=== PATIENT | female | born 1980 | race Caucasian/White ===

== ENCOUNTER 2016-09-25 09:45 | Emergency (ER) | payer MEDICARE, MEDICAID ==
[~2016-09-25 09:45] MED LIST: /AMLO25TA PO; ALB2.5NEB INH; AMBI12.52 PO; CYCL5TA PO; DIVA50TAEC PO; FAMC250T3 PO; LABE300T PO; LITH450T PO; PARL5CAP PO; SYNT50TA PO; TRAZ150T PO; TRAZ50TA2 PO; VALT500T PO; VENL37TA; VICO5TAB PO; VITAD1000T PO
[2016-09-25] MEDS ORDERED: PERCOCET 5MG/325MG TAB As Ordered ONE (10:37)
[2016-09-25] MEDS ORDERED: predniSONE 20 MG TAB As Ordered ONE (10:38)
[2016-09-25] MEDS ORDERED: IBUPROFEN 800 MG TAB As Ordered ONE (10:38)
--- NOTE | 2016-09-25 11:13 | REP ---
Clinical: Trauma . Technique: Internal rotation, external rotation, and Y view right shoulder . Findings: No acute fracture or dislocation. The acromioclavicular and glenohumeral joints are intact. No periarticular calcifications or degenerative changes are appreciated. Sub acromial space is normal. Surrounding soft tissues are unremarkable. Impression: Normal right shoulder radiographs. No acute fracture or dislocation. Signed by Patrick Gold MD 09/25/2016 11:05 A
--- NOTE | 2016-09-25 11:39 | EDDOCDS ---
Physician Documentation [facility] Name: Cornelia Salazar Age: 36 yrs Sex: Female : 1980 Arrival Date: 09/25/2016 Time: 09:45 Bed TR8 Private MD: Bess Wolfe Disposition: 09/25/16 11:10 Discharged to Home/Self Care. Impression: Other sprain of right shoulder joint. - Condition is Stable. - Discharge Instructions: Shoulder Pain, [id number], Shoulder Sprain. - Prescriptions for Mobic 7.5 mg Oral Tablet - take 1 tablet by ORAL route once daily take with food; 20 tablet. Percocet 5- 325 mg Oral Tablet - take 1 tablet by ORAL route every 6 hours As needed MDD: 4 tabs; 6 tablet. - Medication Reconciliation, Local Pharmacy Hours form. - Follow up: [facility]; When: 1 - 2 days; Reason: Further diagnostic work-up, Recheck today's complaints, Continuance of care. Follow up: Emergency Department; Reason: Worsening of conditions. - Problem is new. - Symptoms have improved. Historical: - Allergies: No known drug Allergies; - Home Meds: 1. ibuprofen 200 mg Oral cap 2 caps every 4 hours (Last dose: 09/24/2016 21:00) 2. tizanidine 4 mg oral cap 2 caps as needed as needed (Last dose: 09/24/2016 21:00) 3. bromocriptine 5 mg oral cap 1 cap once daily (Last dose: 09/24/2016 21:00) 4. Depakote ER 500 mg Oral Tb24 1 tab once daily (Last dose: 09/24/2016 21:00) 5. valacyclovir 500 mg Oral tab 2 tabs once daily (Last dose: 09/24/2016 22:00) 6. fenofibrate micronized oral 1 cap once daily (Last dose: 09/24/2016) - PMHx: Bipolar disorder; chronic neck and back problems; pituitary tumor; Herpes; - PSHx: right ankle - pin and screws; Tubal ligation; - Social history: Smoking status: Patient uses tobacco products, light tobacco smoker. No barriers to communication noted, The patient speaks fluent Serbian, Speaks appropriately for age. - Family history: Not pertinent. - : The pt / caregiver states he / she is not on anticoagulants. Home medication list is obtained from the patient. - Exposure Risk Screening:: None identified. 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 4 in. (162.56 cm) (R); Pain 7/10; 11:36 BP 138 / 74; Pulse 82; Resp 16; Temp 98.0(O); Pulse Ox 97% on R/A; Pain 5/10; dwg 09:46 Body Mass Index 39.48 (104.33 kg, 162.56 cm) ct3 Procedures: 11:08 Fracture care/splinting: Splint applied to right shoulder using sling, applied by ef1 nurse. Examined by me, post splint application: neurovascular intact, 2+ distal pulses palpable, brisk capillary refill noted, Patient tolerated well. MDM: 10:31 predniSONE 60 mg PO once; administer with food or milk ordered. ef1 10:31 Ibuprofen 800 mg PO once ordered. ef1 10:31 oxyCODONE-acetaminophen 5 mg-325 mg 1 tabs PO once ordered. ef1 10:31 Ice Pack ordered. ef1 10:31 Shoulder, Complete Ordered. EDID 10:42 [facility] Payment Agreement was scanned into [employer] and attached to record. jp5 10:42 Financial registration complete. jp5 11:08 Sling ordered. ef1 Administered Medications: 10:41 Drug: Ibuprofen 800 mg [ibuprofen 800 mg tablet (1 tabs)] Route: PO; hs1 11:36 Follow up: Response: Pain is decreased dwg 10:41 Drug: oxyCODONE-acetaminophen 1 tabs [oxycodone-acetaminophen 5 mg-325 mg tablet (1 hs1 tabs)] Route: PO; 11:35 Follow up: Response: Pain is decreased dwg 10:42 Drug: predniSONE 60 mg [prednisone 20 mg tablet (3 tabs)] Route: PO; hs1 11:36 Follow up: Response: Pain is decreased dwg Signatures: Dispatcher [employer] EDMS Surjit Pedersen RN RN dwg Estefany Reed PA-C PAMercedesC ef1 Citlali Eisenberg, RN RN hs1 Boris Dominguez jp5 The chart was reviewed and I authenticate all verbal orders and agree with the evaluation and treatment provided.Attachments: 10:42 [facility] Payment Agreement jp5 MTDD
--- NOTE | 2016-09-25 11:40 | EDDOCDS ---
Nurse's Notes [facility] Name: Cornelia Salazar Age: 36 yrs Sex: Female : 1980 Arrival Date: 09/25/2016 Time: 09:45 Bed TR8 Private MD: Bess Wolfe Diagnosis: Other sprain of right shoulder joint Presentation: 09/25 09:50 Presenting complaint: Patient states: woke up with right arm pain and hand pain. hs1 Patient states hx of tennis elbow and that she has been up since 3 am with unbearable pain. Patient states recently over using arm moving boxes and cleaning as she is moving. Pt states unable to have arm hang by her side without pain. Adult Sepsis Screening: The patient does not have new or worsening altered mentation. Patient's respiratory rate is less than 22. Systolic blood pressure is greater than 100. Patient has a qSOFA score of 0- Negative Sepsis Screen. Suicide/Homicide risk assessment- the patient denies having any suicidal and/or homicidal ideations and does not present with any other emotional, behavioral or mental health complaints. Status: Patient is not a business services officer or dependent. Transition of care: patient was not received from another setting of care. 09:50 Acuity: SYBIL Level 3 hs1 09:50 Method Of Arrival: Walkin/Carried/Asstd hs1 Triage Assessment: 09:55 General: Appears in no apparent distress, Behavior is appropriate for age, cooperative. hs1 Pain: Location: right arm Pain currently is 7 out of 10 on a pain scale. At worst was 10 out of 10 on a pain scale. Aggravated by increased activity. HIV screening NA for this visit Offered previously. Musculoskeletal: Range of motion limited in right shoulder Signs and Symptoms of Compartment Syndrome:. 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 ibuprofen 200 mg Oral cap 2 caps every 4 hours (Last dose: 09/24/2016 21:00) 2. tizanidine 4 mg oral cap 2 caps as needed as needed (Last dose: 09/24/2016 21:00) 3. bromocriptine 5 mg oral cap 1 cap once daily (Last dose: 09/24/2016 21:00) 4. Depakote ER 500 mg Oral Tb24 1 tab once daily (Last dose: 09/24/2016 21:00) 5. valacyclovir 500 mg Oral tab 2 tabs once daily (Last dose: 09/24/2016 22:00) 6. fenofibrate micronized oral 1 cap once daily (Last dose: 09/24/2016) - PMHx: Bipolar disorder; chronic neck and back problems; pituitary tumor; Herpes; - PSHx: right ankle - pin and screws; Tubal ligation; - Social history: Smoking status: Patient uses tobacco products, light tobacco smoker. No barriers to communication noted, The patient speaks fluent Latvian, Speaks appropriately for age. - Family history: Not pertinent. - : The pt / caregiver states he / she is not on anticoagulants. Home medication list is obtained from the patient. - Exposure Risk Screening:: None identified. Screenin:35 Screening information is obtained from the patient. Fall risk: No risks identified. dwg Assistance ADL's: requires no assistance with activities of daily living. Abuse/DV Screen: The patient / caregiver reports he/she is: not in a situation that causes fear, pain or injury. Nutritional screening: No deficits noted. Advance Directives: Currently, there is no health care proxy. There is no active DNR order. There is no living will. There is no Power of Venetian Blind Cleaner And Repairer. Advance directive information has not previously been placed in an [facility] medical record. Further advance directive information is declined. home support is adequate. Assessment: 11:32 General: Appears in no apparent distress, Behavior is cooperative, pleasant. Pain: Pain dwg currently is 7 out of 10 on a pain scale. Neurological: Level of Consciousness is awake, alert, Oriented to person, place, time. Respiratory: Airway is patent is compromised Respiratory effort is even, unlabored, Respiratory pattern is regular, symmetrical. Musculoskeletal: Circulation, motion, and sensation intact Capillary refill < 3 seconds Range of motion limited in right shoulder and right elbow. Vital Signs: 09:46 BP 149 / 79; Pulse 88; Resp 18; Temp 97.6(O); Pulse Ox 99% on R/A; Weight 104.33 kg ct3 (R); Height 5 ft. 4 in. (162.56 cm) (R); Pain 7/10; 11:36 BP 138 / 74; Pulse 82; Resp 16; Temp 98.0(O); Pulse Ox 97% on R/A; Pain 5/10; dwg 09:46 Body Mass Index 39.48 (104.33 kg, 162.56 cm) ct3 Vitals: 09:46 Log In Time: September 25, 2016 at 09:46. ct3 ED Course: 09:46 Patient visited by Karina Hughes PCA. ct3 09:46 Bess Wolfe is Private Physician. ct3 09:46 Patient moved to Waiting ct3 09:47 Patient moved to Pre RCE ct3 09:51 Triage Initiated hs1 10:09 Patient moved to Triage 2 hs1 10:16 Estefany Reed PA-C is PHCP. ef1 10:16 Mirella Campbell MD is Attending Physician. ef1 10:16 Patient visited by Estefany Reed PA-C. ef1 10:42 Patient moved to TR2 hs1 10:42 [facility] Payment Agreement was scanned into [employer] and attached to record. jp5 11:01 Patient visited by Estefany Reed PA-C. ef1 11:10 [facility]. ef1 11:15 Patient moved to PR1 / 25 rs6 11:21 Patient visited by Cinthia Ortez PCA. rs6 11:21 Sling applied to right arm. Patient with positive distal sensation and brisk distal rs6 capillary refill after application. 11:29 Shoulder, Complete Returned. EDMS 11:32 Patient moved to TR8 ms18 11:37 No IV's were initiated during this patient's visit. No procedures done that require dwg assistance. 11:38 Patient visited by Surjit Pedersen RN. dwg 11:38 The patient / caregiver is instructed regarding the plan of care and ED course. dwg Administered Medications: 10:41 Drug: Ibuprofen 800 mg [ibuprofen 800 mg tablet (1 tabs)] Route: PO; hs1 11:36 Follow up: Response: Pain is decreased dwg 10:41 Drug: oxyCODONE-acetaminophen 1 tabs [oxycodone-acetaminophen 5 mg-325 mg tablet (1 hs1 tabs)] Route: PO; 11:35 Follow up: Response: Pain is decreased dwg 10:42 Drug: predniSONE 60 mg [prednisone 20 mg tablet (3 tabs)] Route: PO; hs1 11:36 Follow up: Response: Pain is decreased dwg Order Results: Radiology Order: Shoulder, Complete Test: Shoulder, Complete REASON FOR EXAMINATION: Trauma; Clinical: Trauma .; ; Technique: Internal rotation, external rotation, and Y view right shoulder .; ; Findings:; No acute fracture or dislocation. The acromioclavicular and glenohumeral joints; are intact. No periarticular calcifications or degenerative changes are; appreciated. Sub acromial space is normal. Surrounding soft tissues are; unremarkable.; ; Impression:; Normal right shoulder radiographs. No acute fracture or dislocation.; ; ; Signed by; Patrick Gold MD 09/25/2016 11:05 A; Outcome: 11:10 Discharge ordered by Provider. ef1 11:37 Discharge Assessment: Patient awake, alert and oriented x 3. No cognitive and/or dwg functional deficits noted. Patient verbalized understanding of disposition instructions. patient administered narcotics - no. The following High Risk Discharge criteria are identified: None. Discharged to home ambulatory. Condition: good Condition: stable. No special radiology studies were completed. Property sent home with patient. 11:38 Patient left the ED. dwg Signatures: Dispatcher [employer] EDMS Surjti Pedersen RN RN dwg Estefany Reed PABenny PA-C ef1 Citlali Eisenberg RN RN hs1 Karina Hughes, ADVERTISING DISPLAY ROTATOR ADVERTISING DISPLAY ROTATOR ct3 Holly Colin RN RN ms18 Cinthia Ortez, ADVERTISING DISPLAY ROTATOR ADVERTISING DISPLAY ROTATOR rs6 Boris Dominguez jp5 MTDD
--- NOTE | 2016-09-27 12:39 | EDDOCDS ---
Nurse's Notes [facility] Name: Cornelia Salazar Age: 36 yrs Sex: Female : 1980 Arrival Date: 09/25/2016 Time: 09:45 Bed TR8 Private MD: Bess Wolfe Diagnosis: Other sprain of right shoulder joint Presentation: 09/25 09:50 Presenting complaint: Patient states: woke up with right arm pain and hand pain. hs1 Patient states hx of tennis elbow and that she has been up since 3 am with unbearable pain. Patient states recently over using arm moving boxes and cleaning as she is moving. Pt states unable to have arm hang by her side without pain. Adult Sepsis Screening: The patient does not have new or worsening altered mentation. Patient's respiratory rate is less than 22. Systolic blood pressure is greater than 100. Patient has a qSOFA score of 0- Negative Sepsis Screen. Suicide/Homicide risk assessment- the patient denies having any suicidal and/or homicidal ideations and does not present with any other emotional, behavioral or mental health complaints. Status: Patient is not a parts and service manager or dependent. Transition of care: patient was not received from another setting of care. 09:50 Acuity: SYBIL Level 3 hs1 09:50 Method Of Arrival: Walkin/Carried/Asstd hs1 Triage Assessment: 09:55 General: Appears in no apparent distress, Behavior is appropriate for age, cooperative. hs1 Pain: Location: right arm Pain currently is 7 out of 10 on a pain scale. At worst was 10 out of 10 on a pain scale. Aggravated by increased activity. HIV screening NA for this visit Offered previously. Musculoskeletal: Range of motion limited in right shoulder Signs and Symptoms of Compartment Syndrome:. 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 ibuprofen 200 mg Oral cap 2 caps every 4 hours (Last dose: 09/24/2016 21:00) 2. tizanidine 4 mg oral cap 2 caps as needed as needed (Last dose: 09/24/2016 21:00) 3. bromocriptine 5 mg oral cap 1 cap once daily (Last dose: 09/24/2016 21:00) 4. Depakote ER 500 mg Oral Tb24 1 tab once daily (Last dose: 09/24/2016 21:00) 5. valacyclovir 500 mg Oral tab 2 tabs once daily (Last dose: 09/24/2016 22:00) 6. fenofibrate micronized oral 1 cap once daily (Last dose: 09/24/2016) - PMHx: Bipolar disorder; chronic neck and back problems; pituitary tumor; Herpes; - PSHx: right ankle - pin and screws; Tubal ligation; - Social history: Smoking status: Patient uses tobacco products, light tobacco smoker. No barriers to communication noted, The patient speaks fluent Cymraes, Speaks appropriately for age. - Family history: Not pertinent. - : The pt / caregiver states he / she is not on anticoagulants. Home medication list is obtained from the patient. - Exposure Risk Screening:: None identified. Screenin:35 Screening information is obtained from the patient. Fall risk: No risks identified. dwg Assistance ADL's: requires no assistance with activities of daily living. Abuse/DV Screen: The patient / caregiver reports he/she is: not in a situation that causes fear, pain or injury. Nutritional screening: No deficits noted. Advance Directives: Currently, there is no health care proxy. There is no active DNR order. There is no living will. There is no Power of Grocery Team Member. Advance directive information has not previously been placed in an [facility] medical record. Further advance directive information is declined. home support is adequate. Assessment: 11:32 General: Appears in no apparent distress, Behavior is cooperative, pleasant. Pain: Pain dwg currently is 7 out of 10 on a pain scale. Neurological: Level of Consciousness is awake, alert, Oriented to person, place, time. Respiratory: Airway is patent is compromised Respiratory effort is even, unlabored, Respiratory pattern is regular, symmetrical. Musculoskeletal: Circulation, motion, and sensation intact Capillary refill < 3 seconds Range of motion limited in right shoulder and right elbow. Vital Signs: 09:46 BP 149 / 79; Pulse 88; Resp 18; Temp 97.6(O); Pulse Ox 99% on R/A; Weight 104.33 kg ct3 (R); Height 5 ft. 4 in. (162.56 cm) (R); Pain 7/10; 11:36 BP 138 / 74; Pulse 82; Resp 16; Temp 98.0(O); Pulse Ox 97% on R/A; Pain 5/10; dwg 09:46 Body Mass Index 39.48 (104.33 kg, 162.56 cm) ct3 Vitals: 09:46 Log In Time: September 25, 2016 at 09:46. ct3 ED Course: 09:46 Patient visited by Karina Hughes PCA. ct3 09:46 Bess Wolfe is Private Physician. ct3 09:46 Patient moved to Waiting ct3 09:47 Patient moved to Pre RCE ct3 09:51 Triage Initiated hs1 10:09 Patient moved to Triage 2 hs1 10:16 Estefany Reed PA-C is PHCP. ef1 10:16 Mirella Campbell MD is Attending Physician. ef1 10:16 Patient visited by Estefany Reed PA-C. ef1 10:42 Patient moved to TR2 hs1 10:42 [facility] Payment Agreement was scanned into [employer] and attached to record. jp5 11:01 Patient visited by Estefany Reed PA-C. ef1 11:10 [facility]. ef1 11:15 Patient moved to PR1 / 25 rs6 11:21 Patient visited by Cinthia Ortez PCA. rs6 11:21 Sling applied to right arm. Patient with positive distal sensation and brisk distal rs6 capillary refill after application. 11:29 Shoulder, Complete Returned. EDMS 11:32 Patient moved to TR8 ms18 11:37 No IV's were initiated during this patient's visit. No procedures done that require dwg assistance. 11:38 Patient visited by Surjit Pedersen RN. dwg 11:38 The patient / caregiver is instructed regarding the plan of care and ED course. dwg 14:32 T-Sheet-- Draft Copy was scanned into [employer] and attached to record. gb 14:32 Radiology Report was scanned into [employer] and attached to record. gb Administered Medications: 10:41 Drug: Ibuprofen 800 mg [ibuprofen 800 mg tablet (1 tabs)] Route: PO; hs1 11:36 Follow up: Response: Pain is decreased dwg 10:41 Drug: oxyCODONE-acetaminophen 1 tabs [oxycodone-acetaminophen 5 mg-325 mg tablet (1 hs1 tabs)] Route: PO; 11:35 Follow up: Response: Pain is decreased dwg 10:42 Drug: predniSONE 60 mg [prednisone 20 mg tablet (3 tabs)] Route: PO; hs1 11:36 Follow up: Response: Pain is decreased dwg Order Results: Radiology Order: Shoulder, Complete Test: Shoulder, Complete REASON FOR EXAMINATION: Trauma; Clinical: Trauma .; ; Technique: Internal rotation, external rotation, and Y view right shoulder .; ; Findings:; No acute fracture or dislocation. The acromioclavicular and glenohumeral joints; are intact. No periarticular calcifications or degenerative changes are; appreciated. Sub acromial space is normal. Surrounding soft tissues are; unremarkable.; ; Impression:; Normal right shoulder radiographs. No acute fracture or dislocation.; ; ; Signed by; Patrick Gold MD 09/25/2016 11:05 A; Outcome: 11:10 Discharge ordered by Provider. ef1 11:37 Discharge Assessment: Patient awake, alert and oriented x 3. No cognitive and/or dwg functional deficits noted. Patient verbalized understanding of disposition instructions. patient administered narcotics - no. The following High Risk Discharge criteria are identified: None. Discharged to home ambulatory. Condition: good Condition: stable. No special radiology studies were completed. Property sent home with patient. 11:38 Patient left the ED. g Signatures: Dispatcher [employer] Surjit Peng, RN MIRIAN dwg Janae Kern, Romario Reg Estefany Gorman, PA-C PA-C ef1 Citlali Eisenberg RN RN hs1 Karina Hughes, PELLET MACHINE OPERATOR PELLET MACHINE OPERATOR ct3 Holly Colin RN RN ms18 Cinthia Ortez, PELLET MACHINE OPERATOR PELLET MACHINE OPERATOR rs6 Boris Dominguez jp5 Chart Complete MTDD
--- NOTE | 2016-09-27 12:39 | EDDOCDS ---
Physician Documentation [facility] Name: Cornelia Salazar Age: 36 yrs Sex: Female : 1980 Arrival Date: 09/25/2016 Time: 09:45 Bed TR8 Private MD: Bess Wolfe Disposition: 09/25/16 11:10 Discharged to Home/Self Care. Impression: Other sprain of right shoulder joint. - Condition is Stable. - Discharge Instructions: Shoulder Pain, [id number], Shoulder Sprain. - Prescriptions for Mobic 7.5 mg Oral Tablet - take 1 tablet by ORAL route once daily take with food; 20 tablet. Percocet 5- 325 mg Oral Tablet - take 1 tablet by ORAL route every 6 hours As needed MDD: 4 tabs; 6 tablet. - Medication Reconciliation, Local Pharmacy Hours form. - Follow up: [facility]; When: 1 - 2 days; Reason: Further diagnostic work-up, Recheck today's complaints, Continuance of care. Follow up: Emergency Department; Reason: Worsening of conditions. - Problem is new. - Symptoms have improved. Historical: - Allergies: No known drug Allergies; - Home Meds: 1. ibuprofen 200 mg Oral cap 2 caps every 4 hours (Last dose: 09/24/2016 21:00) 2. tizanidine 4 mg oral cap 2 caps as needed as needed (Last dose: 09/24/2016 21:00) 3. bromocriptine 5 mg oral cap 1 cap once daily (Last dose: 09/24/2016 21:00) 4. Depakote ER 500 mg Oral Tb24 1 tab once daily (Last dose: 09/24/2016 21:00) 5. valacyclovir 500 mg Oral tab 2 tabs once daily (Last dose: 09/24/2016 22:00) 6. fenofibrate micronized oral 1 cap once daily (Last dose: 09/24/2016) - PMHx: Bipolar disorder; chronic neck and back problems; pituitary tumor; Herpes; - PSHx: right ankle - pin and screws; Tubal ligation; - Social history: Smoking status: Patient uses tobacco products, light tobacco smoker. No barriers to communication noted, The patient speaks fluent Danish, Speaks appropriately for age. - Family history: Not pertinent. - : The pt / caregiver states he / she is not on anticoagulants. Home medication list is obtained from the patient. - Exposure Risk Screening:: None identified. 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 4 in. (162.56 cm) (R); Pain 7/10; 11:36 BP 138 / 74; Pulse 82; Resp 16; Temp 98.0(O); Pulse Ox 97% on R/A; Pain 5/10; dwg 09:46 Body Mass Index 39.48 (104.33 kg, 162.56 cm) ct3 Procedures: 11:08 Fracture care/splinting: Splint applied to right shoulder using sling, applied by ef1 nurse. Examined by me, post splint application: neurovascular intact, 2+ distal pulses palpable, brisk capillary refill noted, Patient tolerated well. MDM: 10:31 predniSONE 60 mg PO once; administer with food or milk ordered. ef1 10:31 Ibuprofen 800 mg PO once ordered. ef1 10:31 oxyCODONE-acetaminophen 5 mg-325 mg 1 tabs PO once ordered. ef1 10:31 Ice Pack ordered. ef1 10:31 Shoulder, Complete Ordered. EDMS 10:42 [facility] Payment Agreement was scanned into [employer] and attached to record. jp5 10:42 Financial registration complete. jp5 11:08 Sling ordered. ef1 14:32 T-Sheet-- Draft Copy was scanned into [employer] and attached to record. gb 14:32 Radiology Report was scanned into [employer] and attached to record. gb Administered Medications: 10:41 Drug: Ibuprofen 800 mg [ibuprofen 800 mg tablet (1 tabs)] Route: PO; hs1 11:36 Follow up: Response: Pain is decreased dwg 10:41 Drug: oxyCODONE-acetaminophen 1 tabs [oxycodone-acetaminophen 5 mg-325 mg tablet (1 hs1 tabs)] Route: PO; 11:35 Follow up: Response: Pain is decreased dwg 10:42 Drug: predniSONE 60 mg [prednisone 20 mg tablet (3 tabs)] Route: PO; hs1 11:36 Follow up: Response: Pain is decreased dwg Signatures: Dispatcher [employer] Surjit Peng, RN RN [facility] Janae Kern, Romario Reg Estefany Reed PA-C PA-C ef1 Citlali Eisenberg RN RN hs1 Boris Dominguez jp5 The chart was reviewed and I authenticate all verbal orders and agree with the evaluation and treatment provided.Attachments: 10:42 [facility] Payment Agreement jp5 14:32 T-Sheet-- Draft Copy gb Chart Complete MTDD
--- NOTE | 2016-09-27 12:39 | EDDOCDS ---
Physician Documentation [facility] Name: Cornelia Salazar Age: 36 yrs Sex: Female : 1980 Arrival Date: 09/25/2016 Time: 09:45 Bed TR8 Private MD: Bess Wolfe Disposition: 09/25/16 11:10 Discharged to Home/Self Care. Impression: Other sprain of right shoulder joint. - Condition is Stable. - Discharge Instructions: Shoulder Pain, [id number], Shoulder Sprain. - Prescriptions for Mobic 7.5 mg Oral Tablet - take 1 tablet by ORAL route once daily take with food; 20 tablet. Percocet 5- 325 mg Oral Tablet - take 1 tablet by ORAL route every 6 hours As needed MDD: 4 tabs; 6 tablet. - Medication Reconciliation, Local Pharmacy Hours form. - Follow up: [facility]; When: 1 - 2 days; Reason: Further diagnostic work-up, Recheck today's complaints, Continuance of care. Follow up: Emergency Department; Reason: Worsening of conditions. - Problem is new. - Symptoms have improved. Historical: - Allergies: No known drug Allergies; - Home Meds: 1. ibuprofen 200 mg Oral cap 2 caps every 4 hours (Last dose: 09/24/2016 21:00) 2. tizanidine 4 mg oral cap 2 caps as needed as needed (Last dose: 09/24/2016 21:00) 3. bromocriptine 5 mg oral cap 1 cap once daily (Last dose: 09/24/2016 21:00) 4. Depakote ER 500 mg Oral Tb24 1 tab once daily (Last dose: 09/24/2016 21:00) 5. valacyclovir 500 mg Oral tab 2 tabs once daily (Last dose: 09/24/2016 22:00) 6. fenofibrate micronized oral 1 cap once daily (Last dose: 09/24/2016) - PMHx: Bipolar disorder; chronic neck and back problems; pituitary tumor; Herpes; - PSHx: right ankle - pin and screws; Tubal ligation; - Social history: Smoking status: Patient uses tobacco products, light tobacco smoker. No barriers to communication noted, The patient speaks fluent Luxembourgish, Speaks appropriately for age. - Family history: Not pertinent. - : The pt / caregiver states he / she is not on anticoagulants. Home medication list is obtained from the patient. - Exposure Risk Screening:: None identified. 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 4 in. (162.56 cm) (R); Pain 7/10; 11:36 BP 138 / 74; Pulse 82; Resp 16; Temp 98.0(O); Pulse Ox 97% on R/A; Pain 5/10; dwg 09:46 Body Mass Index 39.48 (104.33 kg, 162.56 cm) ct3 Procedures: 11:08 Fracture care/splinting: Splint applied to right shoulder using sling, applied by ef1 nurse. Examined by me, post splint application: neurovascular intact, 2+ distal pulses palpable, brisk capillary refill noted, Patient tolerated well. MDM: 10:31 predniSONE 60 mg PO once; administer with food or milk ordered. ef1 10:31 Ibuprofen 800 mg PO once ordered. ef1 10:31 oxyCODONE-acetaminophen 5 mg-325 mg 1 tabs PO once ordered. ef1 10:31 Ice Pack ordered. ef1 10:31 Shoulder, Complete Ordered. EDMS 10:42 [facility] Payment Agreement was scanned into [employer] and attached to record. jp5 10:42 Financial registration complete. jp5 11:08 Sling ordered. ef1 14:32 T-Sheet-- Draft Copy was scanned into [employer] and attached to record. gb 14:32 Radiology Report was scanned into [employer] and attached to record. gb Administered Medications: 10:41 Drug: Ibuprofen 800 mg [ibuprofen 800 mg tablet (1 tabs)] Route: PO; hs1 11:36 Follow up: Response: Pain is decreased dwg 10:41 Drug: oxyCODONE-acetaminophen 1 tabs [oxycodone-acetaminophen 5 mg-325 mg tablet (1 hs1 tabs)] Route: PO; 11:35 Follow up: Response: Pain is decreased dwg 10:42 Drug: predniSONE 60 mg [prednisone 20 mg tablet (3 tabs)] Route: PO; hs1 11:36 Follow up: Response: Pain is decreased dwg Signatures: Dispatcher [employer] Surjit Peng, RN RN [facility] Janae Kern, Romario Reg Estefany Reed PA-C PA-C ef1 Citlali Eisenberg RN RN hs1 Boris Dominguez jp5 The chart was reviewed and I authenticate all verbal orders and agree with the evaluation and treatment provided.Attachments: 10:42 [facility] Payment Agreement jp5 14:32 T-Sheet-- Draft Copy gb Chart Complete MTDD
== END 2016-09-25 11:38 | disposition home or self-care (01) ==
LOC: M ED 09:45
DX: S43.401A Unspecified sprain of right shoulder joint, initial encounter (principal); X58.XXXA Exposure to other specified factors, initial encounter; Y92.89 Other specified places as the place of occurrence of the external cause; Y93.89 Activity, other specified; Y99.8 Other external cause status; F31.9 Bipolar disorder, unspecified; B00.9 Herpesviral infection, unspecified; M54.9 Dorsalgia, unspecified; F17.210 Nicotine dependence, cigarettes, uncomplicated; Z79.899 Other long term (current) drug therapy

== ENCOUNTER → 2016-10-16 | Outpatient (RCR) | payer MEDICARE, MEDICAID | LOC: M PT 10-04 13:06 | PROVIDERS: ATTEND Orthopaedic Surgery | DX: Z51.89 Encounter for other specified aftercare (principal); M75.41 Impingement syndrome of right shoulder | CPT/HCPCS: 97110; 97140; 97162; G0283; G8984; G8985 ==

== ENCOUNTER → 2016-11-13 | Outpatient (RCR) | payer MEDICARE, MEDICAID | END | disposition home or self-care (01) | LOC: M PT 10-18 13:07 | PROVIDERS: ATTEND Orthopaedic Surgery | DX: Z51.89 Encounter for other specified aftercare (principal); M75.41 Impingement syndrome of right shoulder; M25.511 Pain in right shoulder | CPT/HCPCS: 97110; 97140; G0283; G8984; G8985 ==

== ENCOUNTER → 2016-11-14 | Outpatient (CLI) | payer MEDICARE, MEDICAID | LOC: M LAB 11-13 14:49 | PROVIDERS: ATTEND Physician Assistant Medical | DX: N64.3 Galactorrhea not associated with childbirth (principal) ==

== ENCOUNTER 2016-12-13 13:16 | Outpatient (RCR) | payer MEDICARE, MEDICAID | END 2016-12-14 | LOC: M PT 13:16 | PROVIDERS: ATTEND Orthopaedic Surgery | DX: Z51.89 Encounter for other specified aftercare (principal); M75.41 Impingement syndrome of right shoulder; M25.511 Pain in right shoulder ==

== ENCOUNTER 2016-12-19 11:15 | Outpatient (RCR) | payer MEDICARE, MEDICAID ==
[2017-01-04] MEDS ORDERED: TIZA4CAP3 PO
[2017-01-04] MEDS ORDERED: REGL10TA6 PO (02:40)
== END 2017-01-13 ==
LOC: M PT 11:15
PROVIDERS: ATTEND Orthopaedic Surgery
DX: Z51.89 Encounter for other specified aftercare (principal); M75.41 Impingement syndrome of right shoulder; M25.511 Pain in right shoulder
CPT/HCPCS: 97033; 97110; G8984; G8985; G8986

== ENCOUNTER 2017-01-03 23:50 | Emergency (ER) | payer MEDICARE, MEDICAID ==
[~2017-01-03] VITALS: Ht 162.6 cm; Wt 101.6 kg
[2017-01-04] MEDS ORDERED: TIZA4CAP3 PO
[2017-01-04] MEDS ORDERED: NS 1,000 ML IV ONE (00:15)
[2017-01-04] MEDS ORDERED: METOCLOPRAMIDE INJ 10MG/2ML VIAL (J2765) IV ONE (00:45)
[2017-01-04] MEDS ORDERED: MORPHINE 4 MG/ML 1ML SYRINGE IV ONE (00:45)
[2017-01-04 00:56] LABS: BASO % 0.5 % (0.0-1.0); EOS % 0.8 % (0.0-3.0); LARGE UNSTAINED CELL # 0.1 K/mm3 (0.0-0.4); LARGE UNSTAINED CELL % 1.8 % (0.0-4.0); LYMPH # 1.8 K/mm3 (1.5-4.5); LYMPH % 25.2 % (24.0-44.0); MEAN CORPUSCULAR HEMOGLOBIN 33.7 pg (27.0-33.0); MEAN CORPUSCULAR HGB CONC 34.7 g/dl (32.0-36.5); MEAN CORPUSCULAR VOLUME 97.2 fl (80.0-96.0); MONO # 0.4 K/mm3 (0.0-0.8); MONO % 6.8 % (0.0-5.0); NEUTROPHILS # 4.2 K/mm3 (1.8-7.7); NEUTROPHILS % 64.9 % (36.0-66.0); PLATELET COUNT, AUTOMATED 212 k/mm3 (150-450); RED CELL DISTRIBUTION WIDTH 12.4 % (11.5-14.5); WHITE BLOOD COUNT 6.5 K/mm3 (4.0-10.0)
[2017-01-04 01:09] LABS: CONTROL LINE HCG INT CTR LINE PRESENT
[2017-01-04 01:17] LABS: ALBUMIN 4.1 GM/DL (3.2-5.2); ALBUMIN/GLOBULIN RATIO 1.11 (1.00-1.93); ALKALINE PHOSPHATASE 45 U/L (45-117); ALT/SGPT 18 U/L (12-78); AMYLASE 37 U/L (25-115); ANION GAP 10 MEQ/L (8-16); AST/SGOT 13 U/L (15-37); BILIRUBIN,DIRECT 0.1 MG/DL (0.0-0.2); BILIRUBIN,TOTAL 0.5 MG/DL (0.2-1.0); BLOOD UREA NITROGEN 9 MG/DL (7-18); CALCIUM LEVEL 8.9 MG/DL (8.5-10.1); CARBON DIOXIDE LEVEL 24 MEQ/L (21-32); CHLORIDE LEVEL 104 MEQ/L (98-107); CREATININE FOR GFR 0.86 MG/DL (0.55-1.02); GLOMERULAR FILTRATION RATE > 60.0 (>60); GLUCOSE, FASTING 90 MG/DL (70-105); POTASSIUM SERUM 3.4 MEQ/L (3.5-5.1); SODIUM LEVEL 138 MEQ/L (136-145); TOTAL PROTEIN 7.8 GM/DL (6.4-8.2)
[2017-01-04] MEDS ORDERED: ISOVUE-370 76% 100ML VIAL (Q9967) As Ordered ONE (01:39)
[2017-01-04] MEDS ORDERED: MORPHINE 2 MG/ML 1ML SYRINGE IV ONE (01:45)
[2017-01-04] MEDS ORDERED: IPRATROPIUM 0.5MG/ALBUTEROL 2.5MG INH SOL UD 3ML (DUONEB)(J7620) NEB ONE (02:00)
--- NOTE | 2017-01-04 02:30 | REPUSA ---
CLINICAL HISTORY: Abdominal pain. TECHNIQUE: Multiple axial, sagittal and coronal CT images were obtained through the abdomen and pelvi s after administration of oral and intravenous contrast material. Images were obtained before and aft er IV contrast administration. COMMENTS: The liver is mildly enlarged with decreased attenuation without mass or defect. There is no intra or extrahepatic biliary ductal dilatation. The spleen is normal. The gallbladder is within normal limits . The pancreas is of normal contour and attenuation characteristics. There is no evidence of adrenal mass. Both kidneys demonstrate prompt and equal nephrograms. The kidneys are normal in size, shape and conf iguration. There is no evidence of renal or ureteral mass. No renal or ureteral calculi are identifie d. There is no hydroureter or hydronephrosis. No evidence for appendicitis. There is mild thickening of the proximal small bowels. Fluid-filled re maining small bowels. No evidence for small or large bowel obstruction. There is no evidence of abdom inal ascites or lymphadenopathy. There is no evidence of intrinsic or extrinsic bladder mass. There is no pelvic ascites or lymphadeno artem. Mild diffuse thickening of the wall of the bladder. Images of the lung bases show no evidence of pleural or parenchymal mass. There are no pleural effusi ons. The bony structures are free of lytic or blastic lesions. Multilevel degenerative changes are seen in volving the thoracolumbar spine. Mild bilateral changes of sacroiliitis. Anterior midline supraumbilical hernia containing nonincarcerated fat. IMPRESSION: Enteritis. Mild bilateral changes of sacroiliitis. Mild hepatomegaly with fatty liver infiltration. Mild cystitis. Thank you for your kind referral of this patient.
[2017-01-04] MEDS ORDERED: REGL10TA6 PO (02:40)
[2017-01-04 03:01] VITALS: BP 158/82
== END 2017-01-04 03:02 | disposition home or self-care (01) ==
LOC: M ED 01-04 00:34
DX: K52.9 Noninfective gastroenteritis and colitis, unspecified (principal); F31.9 Bipolar disorder, unspecified; G43.909 Migraine, unspecified, not intractable, without status migrainosus; F17.210 Nicotine dependence, cigarettes, uncomplicated; Z88.8 Allergy status to other drugs, medicaments and biological substances; Z79.899 Other long term (current) drug therapy
CPT/HCPCS: 36415; 74177; 80048; 80076; 81001; 82150; 83690; 84703; 85025; 87086; 96374; 96375; 96376; 99283; J2765; Q9967

== ENCOUNTER → 2017-04-22 | Outpatient (CLI) | payer MEDICARE, MEDICAID ==
[~2017-04-22] MED LIST changes: +REGL10TA6 PO; +TIZA4CAP3 PO
[2017-04-22 13:13] LABS: EOS # 0.2 K/mm3 (0.0-0.50); EOS % 3.3 % (0.0-3.0); LYMPH # 1.7 K/mm3 (1.5-4.5); LYMPH % 27.5 % (24.0-44.0); MEAN CORPUSCULAR HGB CONC 34.3 g/dl (32.0-36.5); MEAN CORPUSCULAR VOLUME 99.1 fl (80.0-96.0); MONO # 0.3 K/mm3 (0.0-0.8); MONO % 5.8 % (0.0-5.0); NEUTROPHILS # 3.4 K/mm3 (1.8-7.7); NEUTROPHILS % 60.4 % (36.0-66.0); RED CELL DISTRIBUTION WIDTH 13.2 % (11.5-14.5); WHITE BLOOD COUNT 5.6 K/mm3 (4.0-10.0)
[2017-04-22 14:20] LABS: ALBUMIN 3.6 GM/DL (3.2-5.2); ALBUMIN/GLOBULIN RATIO 1.09 (1.00-1.93); ALKALINE PHOSPHATASE 35 U/L (45-117); ALT/SGPT 13 U/L (12-78); ANION GAP 10 MEQ/L (8-16); AST/SGOT 8 U/L (15-37); BILIRUBIN,TOTAL 0.6 MG/DL (0.2-1.0); BLOOD UREA NITROGEN 9 MG/DL (7-18); CALCIUM LEVEL 8.6 MG/DL (8.5-10.1); CARBON DIOXIDE LEVEL 24 MEQ/L (21-32); CHLORIDE LEVEL 108 MEQ/L (98-107); CHOLESTEROL LEVEL 155 MG/DL (<200); CREATININE FOR GFR 0.82 MG/DL (0.55-1.02); FREE T4 0.97 NG/DL (0.76-1.46); GLOMERULAR FILTRATION RATE > 60.0 (>60); GLUCOSE, FASTING 87 MG/DL (70-105); POTASSIUM SERUM 4.7 MEQ/L (3.5-5.1); SODIUM LEVEL 142 MEQ/L (136-145); TOTAL PROTEIN 6.9 GM/DL (6.4-8.2); TRIGLYCERIDES LEVEL 182 MG/DL (<150)
== END ==
LOC: M LAB 11:44
PROVIDERS: ATTEND Nurse Practitioner Adult Health
DX: E04.0 Nontoxic diffuse goiter (principal); Z79.899 Other long term (current) drug therapy; N64.3 Galactorrhea not associated with childbirth; F31.81 Bipolar II disorder

== ENCOUNTER → 2017-05-14 | Outpatient (CLI) | payer MEDICARE, MEDICAID ==
[2017-05-14 14:11] LABS: PROLACTIN 16.7 NG/ML
== END ==
LOC: M LAB 12:30
PROVIDERS: ATTEND Physician Assistant Medical
DX: E04.0 Nontoxic diffuse goiter (principal); E64.3 Sequelae of rickets

== ENCOUNTER → 2017-06-14 | Outpatient (CLI) | payer MEDICARE, OTHER, MEDICAID ==
--- NOTE | 2017-06-14 17:26 | REP ---
MR BRAIN WITHOUT AND WITH CONTRAST: HISTORY: Galactorrhea. CONTRAST: ProHance 8 mL. Several punctate areas of increased signal intensity on T2 weighted images are present in subcortical white matter of the frontal lobes. There is no intraparenchymal hemorrhage, infarct or midline shift. An 11 mm pineal cyst is present. The ventricular system is normal in appearance. There is no extracerebral collection. The sella turcica is partially empty. A 3 mm focus of decreased signal intensity on T1 weighted images is present in the left side of pituitary gland. There is minimal heterogenous enhancement with contrast. The pituitary gland measures 5 mm in height. The infundibulum is midline . The cavernous sinuses, optic chiasm and hypothalamus are normal in appearance. The sinuses are clear. IMPRESSION: 1. There are several punctate areas of increased signal intensity in the subcortical white matter of the frontal lobes. This is a nonspecific finding. 2. There is a 3 mm focus of decreased signal intensity in the left side of the pituitary gland with minimal heterogenous enhancement with contrast. This is suspicious for a small microadenoma. Signed by Wilfred Lynne MD 06/14/2017 05:33 P
== END ==
LOC: M PLARAD 14:29
PROVIDERS: ATTEND Internal Medicine Endocrinology, Diabetes & Metabolism
DX: N64.3 Galactorrhea not associated with childbirth (principal)
CPT/HCPCS: 70553; A9576

== ENCOUNTER 2017-09-02 06:01 | Emergency (ER) | payer MEDICAID, MEDICARE, OTHER ==
[2017-09-02 06:43] VITALS: BP 170/85
[2017-09-02] MEDS ORDERED: KETOROLAC 60 MG/2 ML VIAL (J1885) IM ONE (07:15)
[2017-09-02 08:05] LABS: BASO # 0.1 10^3/uL (0.0-0.2); EOS # 0.1 10^3/uL (0.0-0.50); EOS % 2.1 % (0.0-3.0); IMMATURE GRANULOCYTE % 0.3 % (0-0); LYMPH # 1.4 10^3/uL (1.5-4.5); LYMPH % 22.2 % (24.0-44.0); MEAN CORPUSCULAR HEMOGLOBIN 35.7 pg (27.0-33.0); MEAN CORPUSCULAR HGB CONC 35.9 g/dl (32.0-36.5); MEAN CORPUSCULAR VOLUME 99.3 fl (80.0-96.0); MONO # 0.8 10^3/uL (0.0-0.8); MONO % 12.6 % (0.0-5.0); NEUTROPHILS # 3.8 10^3/uL (1.8-7.7); NEUTROPHILS % 61.8 % (36.0-66.0); PLATELET COUNT, AUTOMATED 218 10^3/uL (150-450); RED CELL DISTRIBUTION WIDTH 12.5 % (11.5-14.5); WHITE BLOOD COUNT 6.1 10^3/uL (4.0-10.0)
[2017-09-02 08:15] LABS: ANION GAP 11 MEQ/L (8-16); BLOOD UREA NITROGEN 7 MG/DL (7-18); CALCIUM LEVEL 8.4 MG/DL (8.5-10.1); CARBON DIOXIDE LEVEL 22 MEQ/L (21-32); CHLORIDE LEVEL 105 MEQ/L (98-107); CREATININE FOR GFR 0.72 MG/DL (0.55-1.02); GLOMERULAR FILTRATION RATE > 60.0 (>60); GLUCOSE, FASTING 107 MG/DL (70-105); POTASSIUM SERUM 3.6 MEQ/L (3.5-5.1); SODIUM LEVEL 138 MEQ/L (136-145)
[2017-09-02 08:16] LABS: METHADONE URINE NEGATIVE (NEGATIVE)
--- NOTE | 2017-09-02 08:36 | REP ---
Pelvis, left hip: Three views. History: Trauma. Findings: AP view of the pelvis and AP and frog-leg views of the left hip were obtained and compared with the October 03, 2012 prior study. The bony pelvic ring is intact. No sacral or pelvic fracture is seen. Proximal femurs are intact. No hip fracture is seen. Periarticular soft tissues are unremarkable. Impression: No traumatic abnormality is seen. Signed by Fab Navarro MD 09/02/2017 03:49 P
--- NOTE | 2017-09-02 08:46 | REP ---
Right knee series: Four views. History: Trauma. Findings: Four views of the right knee are obtained. The patient was unable to position herself for the sunrise view. There is mild osteoarthritic spurring at the medial and lateral compartments. There is also mild patellar spurring. No fracture or subluxation is seen. Impression: Mild three compartment osteoarthritic spurring. No traumatic abnormality. Signed by Fab Navarro MD 09/02/2017 03:49 P
[2017-09-03] MEDS ORDERED: DICY1CAP8 PO (19:16)
[2017-09-03] MEDS ORDERED: DIVA500T9 PO (19:16)
[2017-09-03] MEDS ORDERED: VALT1TAB PO (19:16)
[2017-09-03] MEDS ORDERED: BROM1TAB PO (19:16)
[2017-09-03] MEDS ORDERED: DIVA125T PO (19:16)
[2017-09-03] MEDS ORDERED: FENO160T10 PO (19:16)
== END 2017-09-02 08:47 | disposition left against medical advice (07) ==
LOC: M ED 06:01
DX: M25.561 Pain in right knee (principal); G89.29 Other chronic pain; Z72.0 Tobacco use; F12.10 Cannabis abuse, uncomplicated

== ENCOUNTER 2017-09-03 15:27 | Inpatient (IN) | payer MEDICARE, MEDICAID ==
[~2017-09-03] VITALS: Ht 162.6 cm; Wt 75.5 kg
[2017-09-03 16:48] LABS: MEAN CORPUSCULAR HEMOGLOBIN 35.4 pg (27.0-33.0); MEAN CORPUSCULAR VOLUME 98.3 fl (80.0-96.0); PLATELET COUNT, AUTOMATED 214 10^3/uL (150-450); RED CELL DISTRIBUTION WIDTH 12.7 % (11.5-14.5)
[2017-09-03] MEDS ORDERED: cloNIDine 0.1 MG TAB PO ONE (17:00)
[2017-09-03 17:03] LABS: METHADONE URINE NEGATIVE (NEGATIVE)
[2017-09-03 17:05] LABS: CONTROL LINE HCG INT CTR LINE PRESENT
[2017-09-03 17:15] LABS: ALBUMIN 3.6 GM/DL (3.2-5.2); ALKALINE PHOSPHATASE 39 U/L (45-117); ALT/SGPT 33 U/L (12-78); ANION GAP 10 MEQ/L (8-16); AST/SGOT 25 U/L (7-37); BILIRUBIN,DIRECT 0.2 MG/DL (0.0-0.2); BILIRUBIN,TOTAL 0.5 MG/DL (0.2-1.0); BLOOD UREA NITROGEN 9 MG/DL (7-18); CALCIUM LEVEL 8.6 MG/DL (8.5-10.1); CARBON DIOXIDE LEVEL 24 MEQ/L (21-32); CHLORIDE LEVEL 106 MEQ/L (98-107); CREATININE FOR GFR 0.71 MG/DL (0.55-1.02); GLOMERULAR FILTRATION RATE > 60.0 (>60); GLUCOSE, FASTING 128 MG/DL (70-105); POTASSIUM SERUM 3.5 MEQ/L (3.5-5.1); SODIUM LEVEL 140 MEQ/L (136-145); TOTAL PROTEIN 6.6 GM/DL (6.4-8.2)
[2017-09-03] MEDS ORDERED: ACETAMINOPHEN 325 MG TAB PO ONE (17:45)
[2017-09-03] MEDS ORDERED: OLANZapine ORAL DISINTEGRATING TAB 5MG PO ONE ×2 (18:15→20:00)
[2017-09-03] MEDS ORDERED: MAALOX 30 ML SUSP *UDC PO PRN (18:30)
[2017-09-03] MEDS ORDERED: FENO160T10 PO (19:16)
[2017-09-03] MEDS ORDERED: VALT1TAB PO (19:16)
[2017-09-03] MEDS ORDERED: BROM1TAB PO (19:16)
[2017-09-03] MEDS ORDERED: DIVA125T PO (19:16)
[2017-09-03] MEDS ORDERED: DIVA500T9 PO (19:16)
[2017-09-03] MEDS ORDERED: DICY1CAP8 PO (19:16)
[2017-09-03 20:40] VITALS: BP 150/72
[2017-09-03] MEDS: ACETAMINOPHEN TAB 650MG DOSE (2X325MG) PO PRN (21:39)
[2017-09-04] MEDS ORDERED: OLANZapine ORAL DISINTEGRATING TAB 5MG PO ONE (03:30)
[2017-09-04] MEDS ORDERED: LORazepam 2 MG TAB PO PRN (03:30)
[2017-09-04 07:11] VITALS: BP 140/75
[2017-09-04] MEDS: LIDOCAINE 5% (LIDODERM) PATCH TD SCH ×2 (09:00→10:46)
--- NOTE | 2017-09-04 09:21 | HPEPDOC ---
[facility] Medical History & Physical Date of Admission Sep 03, 2017 History and Physical PCP: Dariela Wolfe NP ATTENDING: Dr. Jono Rivera HPI: 37yoF admitted to [facility] for Bipolar disorder, being medically examined today. No acute medical complaints today. 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 Denies injury but states she has been digging her car out of a snowbank for the past week. States she has been off her medications since Saturday related to that she could not get them out of a drawer at her home. She is tangential with questions and becomes agitated multiple times during exam. Reports nasal dryness. Denies any fevers, chills, weakness, fatigue, DAMON, CP, SOB, cough, palpitations, abdominal pain, N/V/D or changes in bowel or bladder habits. PMHx: Bipolar disorder HLD HSV genital IBS Chronic pain. 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 Illicit Drugs: Marijuana daily, cocaine in the past. IV Drug Use: Denies Tattoos done unprofessionally: x 4 FAMHX: Mother: Alive, unknown Father: Alive, unknown Siblings: Alive, substance use Children: Alive, unknown Unexpected deaths due to medical reasons: None. ROS: As noted in HPI, otherwise 11pt ROS of systems reviewed and remarkable only for LMP 12/16/17. PE: GEN: 37yoF, appears stated age. Well-nourished, well developed. No acute distress. Alert and oriented x 3. Rapid, pressured, tangential speech. Pt becomes agitated during exam. HEENT: Normocephalic, atraumatic. Pupils are equal, round, and reactive to light. Extraocular movements are intact. No nystagmus appreciated. Sclera are nonicteric. Conjunctiva without injection. Nose midline. Nasal dryness noted, no drainage, epistaxis. EACs both patent BL. TMs both visualized and jain with good cone of light, no bulging or erythema. No facial asymmetry. Moist mucous membranes. Pharynx pink and moist, no cobblestoning. Neck supple, trachea midline. No lymphadenopathy or thyromegaly appreciated. CHEST: Regular rate and rhythm, +S1, +S2 LUNGS: Clear to auscultation bilaterally. No wheezes, rales, or rhonchi. Breathing appears symmetric and easy. Patient is speaking in full sentences. No accessory muscle use. ABD: Round, soft, non-tender, non-distended. +Bowel sounds throughout. No rebound or guarding. No costovertebral angle tenderness. EXT: Pulses 2+ bilaterally dorsalis pedis and radial. No lower extremity edema appreciated. SKIN: Swink, dry, warm. Capillary refill <2sec. No rashes. Ecchymotic area noted Rt lower chest area. NEURO: Alert and oriented x 3. Cranial nerves III-XII are intact. No focal deficits appreciated. EKG: pending. Left Hip XR 09/02/17 No traumatic abnormality is seen. Rt Knee XR 09/02/17 Mild three compartment osteoarthritic spurring. No traumatic abnormality. MRI Brain 06/02 1. There are several punctate areas of increased signal intensity in the subcortical white matter of the frontal lobes. This is a nonspecific finding. 2. There is a 3 mm focus of decreased signal intensity in the left side of the pituitary gland with minimal heterogenous enhancement with contrast. This is suspicious for a small microadenoma. A&P: 37yoF admitted to [facility] for Bipolar disorder 1. Psych. Plan per Psychiatry. Obtain baseline EKG to assure the safety of psychiatric medications as they can prolong the QT interval. 2. Nicotine dependence. Patch available. 3. nasal dryness. Saline nasal spray as needed. 4. Follow up with PCP on discharge. 5. Substance use. Per psychiatry. 6. Tattoos done unprofessionally. Patient agrees to HIV and hepatitis screening. 7. History of galactorrhea. Patient denies currently. MRI brain 06/[address] Rod Lange. Continue Bromocriptine as per Dr Rod Lange. Request records from Dr. Lange, Endocrinology. Update prolactin level. TSH is noted WNL. Likely recent non compliance with medications. 8. Chronic neck pain/low back pain/right knee pain. Chronic pain. Update XR LS spine and C spine. Continue Tylenol 650 mg every 6 hours as needed. Apply Lidoderm patch to neck or low back daily as needed. Consider pain management consultation if needed. 9. H/O Gential HSV. Pt states she takes Valtrex as needed for recurrence. 10. Dyslipidemia. Continue Fenofibrate. 11. Staff member Sue present on exam. Vital Signs Vital Signs Date Time Temp Pulse Resp B/P (MAP) Pulse Ox O2 Delivery O2 Flow Rate FiO2 09/04/17 07:11 96.9 62 14 140/75 (96) 09/03/17 20:08 96 Room Air Laboratory Data Labs 24H Item Value Date Time Prolactin 16.7 NG/ML 05/14/17 1242 Laboratory Tests 2 09/03/17 16:22: Valproic Acid (Depakene) Level 8.8L 09/03/17 16:25: Nucleated Red Blood Cells % (auto) 0.0, Urine Amphetamines Screen NEGATIVE, Urine Benzodiazepines Screen NEGATIVE, Urine Opiates Screen NEGATIVE, Urine Methadone Screen NEGATIVE, Urine Barbiturates Screen NEGATIVE, Urine Phencyclidine Screen NEGATIVE, Urine Cocaine Metabolite Screen NEGATIVE, Urine Cannabinoids Screen POSITIVEH 09/03/17 16:26: Anion Gap 10, Glomerular Filtration Rate > 60.0, Calcium Level 8.6, Aspartate Amino Transf (AST/SGOT) 25, Alanine Aminotransferase (ALT/SGPT) 33, Alkaline Phosphatase 39L, Total Bilirubin 0.5, Direct Bilirubin 0.2, Total Protein 6.6, Albumin 3.6, Albumin/Globulin Ratio 1.20, Thyroid Stimulating Hormone (TSH) 0.778, Human Chorionic Gonadotropin, Qual NEGATIVE, Salicylates Level 4.3L, Acetaminophen Level < 2.0L, Ethyl Alcohol Level < 0.003 CBC/BMP Laboratory Tests 09/03/17 16:25 Red Blood Count 4.07, Mean Corpuscular Volume 98.3 H, Mean Corpuscular Hemoglobin 35.4 H, Mean Corpuscular Hemoglobin Concent 36.0, Red Cell Distribution Width 12.7 09/03/17 16:26 Home Medications Scheduled Bromocriptine Mesylate (Bromocriptine Mesylate) 2.5 Mg Tab, 5 MG PO QHS Divalproex Sodium (Divalproex Sodium ER) 500 Mg Tab, 500 MG PO QHS Divalproex Sodium (Divalproex Sodium Dr) 125 Mg Tab, 125 MG PO QHS Fenofibrate (Fenofibrate) 160 Mg Tab, 160 MG PO DAILY Valacyclovir Hydrochloride (Valtrex) 1 Gm Tab, 1 GM PO BID Scheduled PRN Dicyclomine HCl (Dicyclomine HCl) 10 Mg Cap, 10 MG PO TID PRN for ABDOMINAL PAIN Allergies Coded Allergies: Hydroxyzine (Verified Allergy, Unknown, 01/04/17) hyperactivity Lorazepam (Verified Allergy, Unknown, 01/04/17) Yesy Perez Sep 04, 2017 09:21
[2017-09-04] MEDS ORDERED: valACYclovir HCL 500 MG TAB PO PRN (09:45)
[2017-09-04] MEDS: FENOFIBRATE 145 MG TAB (TRICOR) PO SCH (10:46)
[2017-09-04] MEDS: DIVALPROEX 500MG *ER* TAB PO SCH ×3 (11:52→21:00)
[2017-09-04] MEDS: ACETAMINOPHEN TAB 650MG DOSE (2X325MG) PO PRN (11:59)
[2017-09-04 12:03] LABS: PROLACTIN 104.9 NG/ML
[2017-09-04 18:00] VITALS: BP 130/62
[2017-09-04] MEDS: **NOTE PATIENT COMMENT** MISC XX SCH (21:53)
[2017-09-04] MEDS: BROMOCRIPTINE MESYLATE 2.5 MG TAB PO SCH (21:56)
[2017-09-04] MEDS: SODIUM CHLORIDE NASAL 0.65% SPRAY BTL (OCEAN) PRN (23:04)
[2017-09-05] MEDS: SODIUM CHLORIDE NASAL 0.65% SPRAY BTL (OCEAN) PRN ×3 (01:58→21:29)
[2017-09-05 07:07] VITALS: BP 160/86
--- NOTE | 2017-09-05 07:28 | ECGEPIP ---
Stationary ECG Study [facility] Test Date: 2017-09-04 Pat Name: DENNY ALEJO Department: Room: [place] [address] Gender: F [employer] Supervisor: ANTON : 1980 Requested By: Yesy Perez Order Number: [id number] Reading MD: Jono Rivera Measurements Intervals [place] Rate: 55 P: 68 [place]: 151 QRS: 60 QRSD: 105 T: 18 QT: 430 QTc: 413 Interpretive Statements SINUS BRADYCARDIA WITH SINUS ARRHYTHMIA Electronically Signed On 09-05-2017 7:27:55 EST by Jono Rivera
[2017-09-05] MEDS: LIDOCAINE 5% (LIDODERM) PATCH TD SCH (09:00)
[2017-09-05] MEDS: DIVALPROEX 500MG *ER* TAB PO SCH ×3 (09:00→21:02)
[2017-09-05] MEDS: OLANZapine ORAL DISINTEGRATING TAB 5MG PO SCH ×3 (10:24→21:02)
[2017-09-05] MEDS: FENOFIBRATE 145 MG TAB (TRICOR) PO SCH (10:25)
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
[2017-09-05] MEDS: ACETAMINOPHEN TAB 650MG DOSE (2X325MG) PO PRN (13:31)
[2017-09-05 18:00] VITALS: BP 132/62
[2017-09-05] MEDS: **NOTE PATIENT COMMENT** MISC XX SCH (21:00)
[2017-09-05] MEDS: BROMOCRIPTINE MESYLATE 2.5 MG TAB PO SCH (21:02)
[2017-09-05] MEDS: DICYCLOMINE 10 MG CAP PO PRN (21:02)
[2017-09-06] MEDS: ACETAMINOPHEN TAB 650MG DOSE (2X325MG) PO PRN ×2 (01:25→08:45)
[2017-09-06] MEDS: SODIUM CHLORIDE NASAL 0.65% SPRAY BTL (OCEAN) PRN ×3 (01:29→15:14)
[2017-09-06] MEDS: DICYCLOMINE 10 MG CAP PO PRN (05:43)
[2017-09-06 06:55] VITALS: BP 145/57
[2017-09-06] MEDS: DIVALPROEX 500MG *ER* TAB PO SCH ×2 (08:45→20:25)
[2017-09-06] MEDS: FENOFIBRATE 145 MG TAB (TRICOR) PO SCH (08:45)
[2017-09-06] MEDS: LIDOCAINE 5% (LIDODERM) PATCH TD SCH (08:46)
[2017-09-06] MEDS: OLANZapine ORAL DISINTEGRATING TAB 5MG PO SCH ×4 (08:46→20:25)
[2017-09-06 18:00] VITALS: BP 139/65
[2017-09-06] MEDS: BROMOCRIPTINE MESYLATE 2.5 MG TAB PO SCH (20:25)
[2017-09-06] MEDS: IBUPROFEN 600 MG TAB PO PRN (20:27)
[2017-09-06] MEDS: **NOTE PATIENT COMMENT** MISC XX SCH (21:00)
[2017-09-06] MEDS: traZODone 50 MG TAB PO PRN ×2 (22:59→23:42)
[2017-09-07] MEDS ORDERED: OLANZapine ORAL DISINTEGRATING TAB 5MG PO ONE (00:45)
[2017-09-07] MEDS: MOM 30ML SUSPENSION UDC PO PRN (03:12)
[2017-09-07] MEDS: IBUPROFEN 600 MG TAB PO PRN ×2 (04:17→20:45)
[2017-09-07 06:27] VITALS: BP 140/66
--- NOTE | 2017-09-07 07:40 | MHIPN ---
DATE: 09/05/2017 VITAL SIGNS: Temperature 98.1, pulse 75, respiration 18, blood pressure 160/86. CURRENT MEDICATION: - Depakote 500 mg three times a day - Trazodone 50 mg at bedtime as needed PSYCHIATRIC HISTORY: Patient had originally agreed to take the Depakote no a three times a day basis. However, she started refusing it last night. She is concerned about hair loss. Patient's Depakote level had climbed to 44 and the patient had been showing some improvement in her bipolar symptoms. Patient is still noted to be manic on the unit. Behavior is labile with frequent weepy episodes. Patient ventilates about her stress regarding the custody issues regarding her child. Patient was given an as needed dose of Ativan which she disliked. She felt that it made her feel to groggy. Other options are considered due to ambivalence bout the Depakote. Risperdal would be contraindicated regarding her pituitary adenoma. Patient volunteers that she likes the Zyprexa Zydis. She has received several as needed doses in the emergency room and here on the unit with good effect. Patient's case is thoroughly reviewed with her outpatient psychiatrist, Dr. Gentile. Treatment plan is reviewed. Dr. Gentile supports the current treatment plan for this patient. There was a dramatic manic switch over the past several months. MENTAL STATUS EXAMINATION: Patient is alert and oriented. She is reasonably cooperative. She is less irritable. Speech is still quite rapid and pressured. She is tearful at times. Patient needs constant structuring. Patient still reports paranoid ideation. Patient denies hearing any voices. Insight and judgment remains poor. Grooming and hygiene remain poor. DIAGNOSIS: Bipolar disorder mixed with psychotic features. Cannabis use disorder. PLAN: Patient used to continue the Depakote, however, we will start Zyprexa Zydis 5 mg three times a day on a trial basis as mentioned above Dr. Gentile supports out treatment plan.
[2017-09-07] MEDS: DIVALPROEX 500MG *ER* TAB PO SCH ×2 (08:25→20:43)
[2017-09-07] MEDS: OLANZapine ORAL DISINTEGRATING TAB 5MG PO SCH ×3 (08:25→20:43)
[2017-09-07] MEDS: FENOFIBRATE 145 MG TAB (TRICOR) PO SCH (08:25)
[2017-09-07] MEDS: LIDOCAINE 5% (LIDODERM) PATCH TD SCH (08:26)
--- NOTE | 2017-09-07 14:42 | MHIPNPDOC ---
[facility] Progress Note Progress Note DATE OF SERVICE: 09/07/17 HISTORY: Patient states her mood is good, but then becomes tearful talking about her children. Patient is sleeping only a few hours, she does not know how many hours, but states that she feels very energized even if she only slept 1 hour. States she feels sleepy during the day due to her medications. Patient denies AVH, denies SI intent and plan. VITAL SIGNS: See below. NEW TEST RESULTS: na CURRENT MEDICATIONS: See below. MENTAL STATUS EXAMINATION: Behavior: cooperative, moderately related Speech: Is normal VT, hyperverbal, mildly rapid rate Thought processes including: linear, quickly jumps to next point without prompt Thought content: appropriate to questions, shares too many details Judgment: poor Insight: poor Orientation: [id number] Mood: "good" Affect: from bright to tearful, labile DIAGNOSES: 1. bipolar ASSESSMENT: Patient still appears to be a little manic, hyperverbal, poor sleep , rapid speech. Labile mood, from bright to tearful MANAGEMENT PLAN: - Continue depakote 500 mg BID - VPA level tomorrow - Zyprexa 5 mg TID - PRN: trazodone, tylenlol, mom, [place] TIME SPENT: 25 minutes. Vital Signs Vital Signs Date Time Temp Pulse Resp B/P (MAP) Pulse Ox O2 Delivery O2 Flow Rate FiO2 09/07/17 06:27 97.0 70 16 140/66 (90) 09/03/17 20:08 96 Room Air Current Medications Current Medications Acetaminophen (Tylenol Tab) 650 mg Q6HP PRN PO HEADACHE or DISCOMFORT Last administered on 09/06/17 08:45; Start 09/03/17 at 18:30; Stop 09/06/17 at 13 :40; Status DC Al Hydrox/Mg Hydrox/Simethicone (Mylanta) 30 ml Q4HP PRN PO HEARTBURN/ INDIGESTION; Start 09/03/17 at 18:30; Stop 10/03/17 at 18:29 Bromocriptine Mesylate (Parlodel) 5 mg QHS PO Last administered on 09/06/17 20:25; Start 09/04/17 at 21:00; Stop 10/04/17 at 20:59 Dicyclomine HCl (Bentyl) 10 mg TID PRN PO ABDOMINAL PAIN Last administered on 09/06/17 05:43; Start 09/04/17 at 09:45; Stop 10/04/17 at 09:44 Divalproex Sodium (Depakote Er) 500 mg BID PO Last administered on 09/07/17 08:25; Start 09/06/17 at 21:00; Stop 10/04/17 at 08:59 Divalproex Sodium (Depakote Er) 500 mg TID PO Last administered on 09/06/17 08:45; Start 09/04/17 at 09:00; Stop 09/06/17 at 12:37; Status DC Fenofibrate (Tricor) 145 mg DAILY PO Last administered on 09/07/17 08:25; Start 09/04/17 at 09:00; Stop 10/04/17 at 08:59 Home Med (Med Rec Complete!) ASDIRECTED XX ; Start 09/03/17 at 19:30; Stop at 19:30; Status DC Ibuprofen (Advil) 600 mg Q6HP PRN PO MODERATE PAIN (PS 5-7) Last administered on 09/07/17 04:17; Start 09/06/17 at 13:45; Stop 10/06/17 at 13:44 Lidocaine (Lidoderm Patch) 2 patch DAILY TD Last administered on 09/04/17 10: 46; Start 09/04/17 at 09:00; Stop 10/04/17 at 08:59 Lorazepam (Ativan) 2 mg Q6HP PRN PO ANXIETY/AGITATION Last administered on 01:58; Start 09/04/17 at 03:30; Stop 09/05/17 at 10:25; Status DC Magnesium Hydroxide (Milk Of Magnesia) 30 ml DAILYPRN PRN PO CONSTIPATION Last administered on 09/07/17 03:12; Start 09/03/17 at 18:30; Stop 10/03/17 at 18: 29 Non-Formulary Medication ( See Comment Field Below ) REMOVE LIDODERM PATCH DAILY@21 XX Last administered on 09/05/17 21:00; Start 09/04/17 at 21:00; Stop 10/04/17 at 20:59 Olanzapine (ZyPREXA ZYDIS) 5 mg TID PO Last administered on 09/07/17 08: 25; Start 09/05/17 at 10:00; Stop 10/05/17 at 09:59 Sodium Chloride ([place] Nasal [place]) 2 spray Q2HP PRN NA NASAL DRYNESS Last administered on 09/06/17 15:14; Start 09/04/17 at 09:15; Stop 10/04/17 at 09: 14 Trazodone HCl (Desyrel) 50 mg QHSP PRN PO INSOMNIA Last administered on 23:42; Start 09/03/17 at 18:30; Stop 10/03/17 at 18:29 Valacyclovir HCl (Valtrex) 1,000 mg BID PRN PO RASH Last administered on 10:50; Start 09/04/17 at 09:45; Stop 09/11/17 at 09:44 Allergies Coded Allergies: Hydroxyzine (Verified Allergy, Unknown, 01/04/17) hyperactivity Lorazepam (Verified Allergy, Unknown, 01/04/17) GANESH ISAAC MD Sep 07, 2017 14:42
[2017-09-07 18:00] VITALS: BP 139/76
[2017-09-07] MEDS: BROMOCRIPTINE MESYLATE 2.5 MG TAB PO SCH (20:43)
[2017-09-07] MEDS: **NOTE PATIENT COMMENT** MISC XX SCH (21:00)
[2017-09-08] MEDS: SODIUM CHLORIDE NASAL 0.65% SPRAY BTL (OCEAN) PRN ×2 (00:46→04:31)
[2017-09-08] MEDS: IBUPROFEN 600 MG TAB PO PRN ×2 (04:30→15:47)
[2017-09-08 06:37] VITALS: BP 143/78
[2017-09-08] MEDS: DIVALPROEX 500MG *ER* TAB PO SCH ×2 (08:51→20:19)
[2017-09-08] MEDS: OLANZapine ORAL DISINTEGRATING TAB 5MG PO SCH ×3 (08:51→20:19)
[2017-09-08] MEDS: LIDOCAINE 5% (LIDODERM) PATCH TD SCH (08:51)
[2017-09-08] MEDS: FENOFIBRATE 145 MG TAB (TRICOR) PO SCH (08:51)
--- NOTE | 2017-09-08 10:36 | MHIPN ---
DATE: 09/06/2017 VITAL SIGNS: Temperature 97.5, pulse 65, respirations 18, blood pressure 145/57. CURRENT MEDICATIONS: - Zyprexa Zydis 5 mg three times a day - Depakote 500 mg three times a day PSYCH HISTORY: Patient claims that she is not manic several times during the session. The patient shows poor insight. She has been refusing various doses of the Depakote and the Zyprexa Zydis. The patient's mood is labile during the day, at times angry, irritable and yelling. The patient is worried about her dog. She claims nobody else can take care of it. She wants to be discharged so she can take care of her dog. She is concerned about the Depakote due to losing hair. The patient is encouraged to take the Zyprexa Zydis. As mentioned in yesterday's note, her treatment plan had been thoroughly reviewed with Dr. Gentile who supports this trial of medication. The patient is upset about being here over [place], but clearly can benefit from a mood stabilizer. MENTAL STATUS EXAMINATION: Patient is alert and oriented, but is not cooperative. She swears. She is angry. She is hostile. She is depressed. She is tearful. She has racing thoughts and pressured speech. She jumps from subject to subjection. Insight is quite poor with massive denial about her manic state. She denies hearing voices. She does show some signs of paranoia and grandiosity. Grooming and hygiene are fair. DIAGNOSIS: Bipolar disorder mixed with psychotic features. Cannabis use disorder. PLAN: Reduce Depakote to 500 mg twice a day. Continue Zyprexa Zydis 5 mg three times a day.
[2017-09-08 18:00] VITALS: BP 145/72
[2017-09-08] MEDS: BROMOCRIPTINE MESYLATE 2.5 MG TAB PO SCH (20:19)
[2017-09-08] MEDS: **NOTE PATIENT COMMENT** MISC XX SCH (21:00)
[2017-09-09] MEDS: MOM 30ML SUSPENSION UDC PO PRN (02:27)
[2017-09-09 06:28] VITALS: BP 120/54
[2017-09-09] MEDS: FENOFIBRATE 145 MG TAB (TRICOR) PO SCH (08:04)
[2017-09-09] MEDS: DIVALPROEX 500MG *ER* TAB PO SCH ×2 (08:04→20:15)
[2017-09-09] MEDS: OLANZapine ORAL DISINTEGRATING TAB 5MG PO SCH ×3 (08:04→20:15)
[2017-09-09] MEDS: LIDOCAINE 5% (LIDODERM) PATCH TD SCH (08:05)
[2017-09-09] MEDS: IBUPROFEN 600 MG TAB PO PRN ×2 (09:51→16:35)
[2017-09-09 18:09] VITALS: BP 127/71
[2017-09-09] MEDS: **NOTE PATIENT COMMENT** MISC XX SCH (20:13)
[2017-09-09] MEDS: BROMOCRIPTINE MESYLATE 2.5 MG TAB PO SCH (20:41)
[2017-09-10] MEDS: traZODone 50 MG TAB PO PRN (01:11)
[2017-09-10] MEDS: IBUPROFEN 600 MG TAB PO PRN ×4 (01:12→22:33)
[2017-09-10] MEDS: MOM 30ML SUSPENSION UDC PO PRN (04:34)
[2017-09-10 07:10] VITALS: BP 139/68
[2017-09-10] MEDS: LIDOCAINE 5% (LIDODERM) PATCH TD SCH ×2 (09:00→17:19)
[2017-09-10] MEDS: FENOFIBRATE 145 MG TAB (TRICOR) PO SCH (09:00)
[2017-09-10 18:41] VITALS: BP 150/79
[2017-09-10] MEDS ORDERED: OLANZapine 10 MG TAB PO SCH (21:00)
[2017-09-10] MEDS ORDERED: OLANZapine ORAL DISINTEGRATING TAB 5MG PO SCH (21:00)
[2017-09-10] MEDS ORDERED: DIVALPROEX 500MG *ER* TAB PO SCH (21:00)
[2017-09-10] MEDS: **NOTE PATIENT COMMENT** MISC XX SCH (21:37)
[2017-09-10] MEDS: BROMOCRIPTINE MESYLATE 2.5 MG TAB PO SCH (21:38)
[2017-09-11] MEDS: traZODone 50 MG TAB PO PRN (00:35)
[2017-09-11 07:03] VITALS: BP 126/78
[2017-09-11] MEDS: FENOFIBRATE 145 MG TAB (TRICOR) PO SCH (08:13)
[2017-09-11] MEDS: IBUPROFEN 600 MG TAB PO PRN (08:13)
[2017-09-11] MEDS: LIDOCAINE 5% (LIDODERM) PATCH TD SCH (08:14)
--- NOTE | 2017-09-11 10:13 | MHIPN ---
DATE: 09/10/2017 VITAL SIGNS: Temperature 97.6, pulse 78, respirations 14, blood pressure 139/68. CURRENT MEDICATIONS: - Depakote 500 mg twice a day - Zyprexa Zydis 5 mg three times a day - trazodone 50 mg at night as needed PSYCHIATRIC HISTORY: The patient now admits that she has indeed been manic. She shows better insight and judgment. She has found the medication helpful, if somewhat sedating during the daytime. The patient has been attending groups. She is socializing with her peers. Her Depakote blood level was marginally therapeutic at 52.5. She took some trazodone last night, which helped her sleep better. She did reasonably well over the weekend. Her children were with her father. Staff reported there is another Child Protective Services (CPS) issue and they will be coming to visit soon, probably today. The patient again describes the various stressors prior to admission. She is ventilating appropriately. MENTAL STATUS EXAMINATION: The patient is alert and oriented. She is cooperative today. Insight is much improved. She is no longer angry or hostile. She is not depressed today. She is not tearful. Racing thoughts much improved. Speech is much more appropriate. She is not hearing voices. No current signs of paranoia or thought disorder. Grooming and hygiene appear improved. DIAGNOSES: 1. Bipolar disorder, mixed with psychotic features, improving. 2. Cannabis use disorder. PLAN: Depakote, switch to 1000 mg at night. Change Zyprexa Zydis to regular Zyprexa 10 mg by mouth at night.
[2017-09-11] MEDS ORDERED: OLAN10TA2 PO (10:18)
[2017-09-11] MEDS ORDERED: DEPA500T2 PO (10:18)
[2017-09-11] MEDS ORDERED: TRAZO50TA PO (10:18)
--- NOTE | 2017-09-12 12:12 | MHDS ---
DATE OF ADMISSION: 09/03/2017 DATE OF DISCHARGE: 09/11/2017 VITAL SIGNS: Temperature 96.7, pulse 76, respiration 20, blood pressure 126/78. CURRENT MEDICATIONS: - Depakote ER 1000 mg nightly - Zyprexa 10 mg nightly - trazodone 50 mg nightly as needed DISCHARGE DIAGNOSES: Bipolar disorder mixed with psychotic features. Cannabis use disorder. LABS: CBC and differential normal except MCV elevated at 98.3 and MCH elevated at 35.4. Serum chemistry within normal limits except for fasting glucose 128. The patient's prolactin elevated at 104.9. Toxicology screen was positive for cannabinoids. Valproic acid level on 09/08/2017 was 52.5. Level on 09/10/2017 was 37.0. CHIEF COMPLAINT: The patient was manic at her psychiatrist's office who requested emergency admission. HISTORY OF PRESENT ILLNESS: This is a 37-year-old white female with a history of bipolar disorder. She is with three children. The patient has been working with Dr. Gentile for approximately 6 years. The patient has been on a low dose of Depakote and recently has shown a manic relapse. The patient has had multiple stressors. She is upset about her ex- and custody issues with the young children. She is having car issues. Family reports she has had multiple sexual partners showing poor judgment. She smokes cannabis on a daily basis. The patient does report having racing thoughts. She is quite distractible. She has lost 15 pounds in 3 months. She only sleeps 3-4 hours at most at night. PROGRESS ON THE UNIT: The patient showed significant manic symptoms. However, she was also depressed as well with frequent weepy episodes. At first, her insight was quite poor. She denied that she had a manic state. She was resistant to psychotropics. She would flip-flop from day to day whether she would take her medications or not. The patient's Depakote was increased to 500 mg three times a day with some marginal benefit. However, the patient still had racing thoughts. She would not be a candidate for Risperdal due to her pituitary adenomas. The patient requested a trial on Zyprexa situs. She had received this product on a as needed basis several times with good effect. It seemed to help her mood as well as her anxiety symptoms. She was started on a three times a day basis 5 mg three times a day which was well tolerated. Medication compliance improved. Her depressive symptoms resolved completely. Her manic symptoms also improved markedly . Speech was still somewhat rapid at the time of discharge but was much more appropriate. The patient's insight improved. She was showing better insight into her manic illness and cooperative with discharge planning. She met with child protective services (CPS) workers the day prior to discharge without any decompensation. The patient made plans to cut back on her excessive work schedule. MENTAL STATUS EXAMINATION: At the time of discharge, mood and affect were much improved. Eye contact was good. She was not sad or depressed. She was not suicidal. She was not homicidal. No signs of hallucinations or delusions. Grooming and hygiene was good. Memory function is intact. No signs of dangerousness. Speech was still somewhat rapid and pressured but much improved compared to admission. No signs of dangerousness at the time of discharge. ASSESSMENT: The patient appears to have reached maximal hospital benefit. PLAN: Discharge to the community.
== END 2017-09-11 12:45 | disposition home or self-care (01) | DRG 885 ==
LOC: M ED 15:27 → M ED INP 18:18 → M PSY 20:36
PROVIDERS: ADMIT Psychiatry & Neurology Psychiatry; ATTEND Psychiatry & Neurology Psychiatry
DX: F31.64 Bipolar disorder, current episode mixed, severe, with psychotic features (principal); F12.90 Cannabis use, unspecified, uncomplicated; F17.200 Nicotine dependence, unspecified, uncomplicated; M54.5 Low back pain; M54.2 Cervicalgia; E78.5 Hyperlipidemia, unspecified

== ENCOUNTER 2017-10-29 10:35 | Emergency (ER) | payer MEDICARE, MEDICAID ==
[2017-10-29 12:52] LABS: HEMATOCRIT 42.1 % (36.0-47.0); HEMOGLOBIN 14.3 g/dl (12.0-16.0); MEAN CORPUSCULAR HEMOGLOBIN 33.5 pg (27.0-33.0); MEAN CORPUSCULAR VOLUME 98.6 fl (80.0-96.0); PLATELET COUNT, AUTOMATED 288 10^3/uL (150-450); RED BLOOD COUNT 4.27 10^6/uL (4.00-5.40); RED CELL DISTRIBUTION WIDTH 12.2 % (11.5-14.5); WHITE BLOOD COUNT 10.4 10^3/uL (4.0-10.0)
[2017-10-29] MEDS: ACETAMINOPHEN TAB 650MG DOSE (2X325MG) PO (12:53)
[2017-10-29 13:05] LABS: CONTROL LINE HCG INT CTR LINE PRESENT; HCG, SERUM QUALITATIVE NEGATIVE (NEGATIVE)
[2017-10-29 13:16] LABS: AMPHETAMINES LEVEL URINE NEGATIVE (NEGATIVE); BARBITURATES URINE NEGATIVE (NEGATIVE); BENZODIAZEPINES URINE NEGATIVE (NEGATIVE); CANNABINOIDS URINE POSITIVE (NEGATIVE); COCAINE METABOLITE URINE NEGATIVE (NEGATIVE); METHADONE URINE NEGATIVE (NEGATIVE); OPIATES URINE NEGATIVE (NEGATIVE); PHENCYCLIDINE URINE NEGATIVE (NEGATIVE)
[2017-10-29 13:22] LABS: VALPROIC ACID (DEPAKOTE) < 3.0 UG/ML (50.0-100.0)
[2017-10-29 13:25] LABS: ALBUMIN 3.7 GM/DL (3.2-5.2); ALBUMIN/GLOBULIN RATIO 1.19 (1.00-1.93); ALKALINE PHOSPHATASE 46 U/L (45-117); ALT/SGPT 17 U/L (12-78); ANION GAP 6 MEQ/L (8-16); AST/SGOT 11 U/L (7-37); BILIRUBIN,DIRECT 0.1 MG/DL (0.0-0.2); BILIRUBIN,TOTAL 0.4 MG/DL (0.2-1.0); BLOOD UREA NITROGEN 11 MG/DL (7-18); CALCIUM LEVEL 8.8 MG/DL (8.5-10.1); CARBON DIOXIDE LEVEL 30 MEQ/L (21-32); CHLORIDE LEVEL 105 MEQ/L (98-107); CREATININE FOR GFR 0.68 MG/DL (0.55-1.30); ETHYL ALCOHOL (ETHANOL) < 0.003 % (0.000-0.010); GLOMERULAR FILTRATION RATE > 60.0 (>60); GLUCOSE, FASTING 91 MG/DL (70-100); POTASSIUM SERUM 3.9 MEQ/L (3.5-5.1); SALICYLATE LEVEL 2.8 MG/DL (5.0-30.0); SODIUM LEVEL 141 MEQ/L (136-145); TOTAL PROTEIN 6.8 GM/DL (6.4-8.2)
[2017-10-29 13:27] LABS: ACETAMINOPHEN LEVEL < 2.0 UG/ML (10.0-30.0)
== END 2017-10-29 14:16 | disposition home or self-care (01) ==
LOC: M ED 10:35
DX: Z60.9 Problem related to social environment, unspecified (principal); F31.9 Bipolar disorder, unspecified; K58.9 Irritable bowel syndrome, unspecified; B00.9 Herpesviral infection, unspecified; G89.29 Other chronic pain; E78.9 Disorder of lipoprotein metabolism, unspecified; F17.210 Nicotine dependence, cigarettes, uncomplicated; F12.90 Cannabis use, unspecified, uncomplicated; Z79.899 Other long term (current) drug therapy; Z88.8 Allergy status to other drugs, medicaments and biological substances; Z91.040 Latex allergy status; Z91.048 Other nonmedicinal substance allergy status; Z98.890 Other specified postprocedural states
CPT/HCPCS: G0480

== ENCOUNTER → 2017-11-14 | Outpatient (CLI) | payer MEDICARE, MEDICAID ==
[2017-11-14 13:46] LABS: FREE T4 0.78 NG/DL (0.76-1.46)
[2017-11-14 15:10] LABS: PROLACTIN 59.9 NG/ML
== END ==
LOC: M LAB 11:48
DX: E22.1 Hyperprolactinemia (principal)
CPT/HCPCS: 84146